=== PATIENT | female | born 1965 | race Caucasian/White ===

== ENCOUNTER 2017-02-17 10:32 | Day surgery (SDC) | payer MEDICARE, MEDICAID ==
[2017-02-17] MEDS ORDERED: Propofol 200 MG/20 ML SDV ONE (11:35)
[2017-02-17] MEDS ORDERED: Midazolam 1 MG/ML 2 ML SDV ONE (11:35)
[2017-02-17] MEDS ORDERED: fentaNYL 100 MCG/2 ML SDV ONE ×3 (11:35→12:35)
[2017-02-17] MEDS ORDERED: Lactated Ringers 1,000 ML IV SCH (11:45)
[2017-02-17] MEDS ORDERED: Cyanocobalamin (Vitamin B12) 1,000 MCG/ML SDV IM ONE (12:00)
[2017-02-17] MEDS ORDERED: Glycopyrrolate 0.2 MG/ML 2 ML SYRINGE IVPUSH ONE (12:15)
[2017-02-17] MEDS ORDERED: MVI, Adult with Vitamin K 10 ML, Thiamine 200 MG, Chromium/Copper/Mang/Selen/Zn 1 ML in... IV SCH ×8 (13:00→14:45)
[2017-02-17] MEDS ORDERED: Ondansetron 4 MG/2 ML SDV IVPUSH ONE (14:45)
[2017-02-17] MEDS ORDERED: Meperidine PF 100 MG/ML Syringe IM ONE (14:57)
[2017-02-17] MEDS ORDERED: hydrOXYzine HCl 50 MG/ML SDV IM ONE (14:58)
[2017-02-17 16:16] VITALS: BP 123/80
--- NOTE | 2017-02-19 12:28 | OR ---
DATE OF PROCEDURE: 02/17/2017 PREOPERATIVE DIAGNOSIS: Dysphagia, status post gastric bypass. POSTOPERATIVE DIAGNOSIS: Dysphagia, status post gastric bypass with mild strictured gastrojejunostomy. PROCEDURES: Upper GI endoscopy with dilation gastrojejunostomy (70125). ANESTHESIA: IV sedation. INDICATION FOR PROCEDURE: This is a 51-year-old female presenting with some dysphagia developing status post Emely-en-Y gastric bypass in 2000. Plan is to proceed with upper GI endoscopy with biopsies and/or dilation as indicated. Potential risks including bleeding and perforation were discussed, and the patient wishes to proceed. DETAILS OF PROCEDURE: The patient was taken to the operating room and placed in a left lateral decubitus position. IV sedation was administered, after which the upper GI endoscope was passed orally through the length of the esophagus into the gastric pouch. The scope could be passed through the anastomosis. All appeared to be somewhat narrowed. This was a completely bland appearing area of mild stricturing, but there not being any significant inflammation present. The visualized portion of the Emely limb was likewise unremarkable. At this point, additionally the area of the stricture was dilated with 45-Portuguese gastrointestinal balloon. Upon deflation, this resulted in no other significant change. Given this, a 54-Portuguese balloon catheter was then inflated and held in position for 1 minute, after this was deflated and withdrawn. The patient was noted to have somewhat increased diameter of the anastomosis, there was no complications were noted and the procedure was then concluded. The patient was taken to the recovery room in satisfactory condition. The patient will be counseled postoperatively regarding eating behavior. She will probably need to chew her foods a bit more finely as certainly the degree of the stricturing that she had should generally not result in too much in the way of symptoms. She will be following up with Cindy Betancur in 1 month. Nash Levin MD /[id number]
== END 2017-02-17 16:00 | disposition home or self-care (01) ==
LOC: JP.SDS 10:32
PROVIDERS: ATTEND Surgery
DX: K91.89 Other postprocedural complications and disorders of digestive system (principal); I10 Essential (primary) hypertension; E78.5 Hyperlipidemia, unspecified; G47.33 Obstructive sleep apnea (adult) (pediatric); Z98.84 Bariatric surgery status; Z88.1 Allergy status to other antibiotic agents; Z88.8 Allergy status to other drugs, medicaments and biological substances; F41.8 Other specified anxiety disorders
CPT/HCPCS: 43245; J2175; J2250; J2405; J2704; J3010; J3410; J3411; J3420; J7120